=== PATIENT | female | born 1990 | race Caucasian/White ===

== ENCOUNTER 2017-05-21 10:44 | Emergency (ER) | payer SELFPAY ==
[2017-05-21 11:08] LABS: URINE HCG POC HCG NEGATIVE (Negative)
== END 2017-05-21 11:30 | disposition left against medical advice (07) ==
LOC: ER 10:44
DX: R10.10 Upper abdominal pain, unspecified (principal); Z53.21 Procedure and treatment not carried out due to patient leaving prior to being seen by health care provider
CPT/HCPCS: 81025